=== PATIENT | female | born 2000 | race Caucasian/White ===

== ENCOUNTER 2019-11-16 09:44 | Emergency (ER) | payer MEDICAID ==
[~2019-11-16] VITALS: Ht 165.1 cm; Wt 65.9 kg
[2019-11-16 10:02] VITALS: BP 120/72
== END 2019-11-16 11:46 | disposition home or self-care (01) ==
LOC: ER 09:44
DX: J06.9 Acute upper respiratory infection, unspecified (principal)
CPT/HCPCS: 99281